=== PATIENT | male | born 1960 | race Caucasian/White ===

== ENCOUNTER 2018-02-24 14:09 | Emergency (ER) | payer OTHER ==
[~2018-02-24] VITALS: Ht 190.5 cm; Wt 97.5 kg
[2018-02-24 15:07] LABS: ABSOLUTE BASOPHILS 0.1 thou/uL (0.0-0.2); ABSOLUTE EOSINOPHILS 0.2 thou/uL (0.0-0.7); ABSOLUTE LYMPHOCYTES 1.9 thou/uL (0.8-5.3); ABSOLUTE NEUTROPHILS 9.5 thou/uL (1.6-8.1); BASOPHILS 0.6 %; EOSINOPHILS 1.9 %; LYMPHOCYTES 14.8 %; MCH 29.4 pg (26.0-34.0); MCV 86.4 fL (80.0-100.0); MONOCYTES 7.6 %; MPV 8.2 fl. (7.2-11.1); NUCLEATED RBCS 0 /100WBC; PLATELET COUNT* 286 thou/uL (150-400); POLYS 75.1 %; RBC 5.45 mil/uL (4.50-6.00); RDW-CV 13.2 % (10.5-14.5); WBC 12.7 thou/uL (4.0-11.0)
[2018-02-24 15:16] LABS: ANION GAP 7 mmol/L (7-16); BUN 12 mg/dL (7-18); CALCIUM 9.2 mg/dL (8.5-10.1); CHLORIDE 99 mmol/L (98-107); CO2 28 mmol/L (21-32); CREATININE 1.2 mg/dL (0.6-1.3); GLUCOSE 103 mg/dL (70-99); POTASSIUM 4.2 mmol/L (3.5-5.1); SODIUM 134 mmol/L (136-145)
[2018-02-24 15:26] LABS: ALBUMIN 3.7 g/dL (3.4-5.0); ALKALINE PHOSPHATASE 30 U/L (46-116); LIPASE 158 U/L (73-393); NT-PRO BRAIN NAT PEPTIDE 406 pg/mL (<300); SGOT 14 U/L (15-37); SGPT 23 U/L (30-65); TOTAL BILIRUBIN 0.6 mg/dL (<0.1-1.0); TOTAL PROTEIN 7.5 g/dL (6.4-8.2); TROPONIN-I LEVEL <0.06 ng/mL (<0.06)
[2018-02-24] MEDS ORDERED: ZPAK PO (16:07)
[2018-02-24] MEDS ORDERED: MEDROLDOSEPACK PO (16:07)
[2018-02-24] MEDS ORDERED: NORCO 5-325 TA1 EACH PO (16:07)
[2018-02-24] MEDS ORDERED: LISINOPRIL20 MG PO (16:07)
[2018-02-24 16:49] VITALS: BP 165/105
--- NOTE | 2018-02-25 17:22 | EKG ---
[place] [address] ELECTROCARDIOGRAM REPORT Name: KEVINDENNIS Pasha Room: [facility]#: [id number] Admission: 02/24/18 Attend Phys: Discharge: 02/24/18 Date of : 56 Report #: [id number] THIS REPORT FOR: //name// [facility] ED Test Date: 2018-02-24 Test Time: 14:33:47 Pat Name: DENNIS BROWN Department: Room: Gender: M [employer] Specialist: JESSICA : 1960 Requested By: Sena Black Order Number: [id number] MD: Kumar Vasquez Measurements Intervals [place] Rate: 77 P: -11 ID: 150 QRS: -53 QRSD: 88 T: 7 QT: 408 QTc: 462 Interpretive Statements Sinus rhythm Inferior infarct, old, possible No previous ECG available for comparison Electronically Signed On 02-25-2018 17:21:55 CDT by Kumar Vasquez [email or web address] <ELECTRONICALLY SIGNED> By: Kumar Vasquez MD, FACC 02/25/18 1721 1433 1433 Kumar Vasquez MD, FACC /EPI
== END 2018-02-24 16:49 | disposition home or self-care (01) ==
LOC: M.ERS 14:09
PROVIDERS: Nurse Practitioner Family
DX: J18.9 Pneumonia, unspecified organism (principal); M94.0 Chondrocostal junction syndrome [Tietze]; I10 Essential (primary) hypertension; J44.9 Chronic obstructive pulmonary disease, unspecified

== ENCOUNTER 2019-07-04 14:43 | Emergency (ER) | payer OTHER ==
[~2019-07-04] VITALS: Ht 190.5 cm; Wt 101.2 kg
[~2019-07-04 14:43] MED LIST: LISINOPRIL20 MG PO; MEDROLDOSEPACK PO; NORCO 5-325 TA1 EACH PO; ZPAK PO
[2019-07-04] MEDS ORDERED: CARVEDILOL12.5 MG PO (14:53)
[2019-07-04] MEDS ORDERED: FLOMAX0.4 MG PO (14:53)
[2019-07-04] MEDS ORDERED: NORVASC 2.5 MG2.5 M1 PO (14:53)
[2019-07-04] MEDS ORDERED: ASA81BEC PO (14:53)
[2019-07-04 15:20] LABS: INFLUENZA A ANTIGEN Negative (Negative); INFLUENZA B ANTIGEN Negative (Negative)
[2019-07-04 15:23] LABS: ABSOLUTE EOSINOPHILS 0.2 thou/uL (0.0-0.7); ABSOLUTE LYMPHOCYTES 1.5 thou/uL (0.8-5.3); ABSOLUTE MONOCYTES 0.9 thou/uL (0.0-1.2); ABSOLUTE NEUTROPHILS 4.5 thou/uL (1.6-8.1); BASOPHILS 0.5 %; EOSINOPHILS 2.2 %; HEMATOCRIT 32.1 % (42.0-52.0); LYMPHOCYTES 20.7 %; MCH 27.8 pg (26.0-34.0); MCHC 34.3 g/dL (28.0-37.0); MCV 81.1 fL (80.0-100.0); MONOCYTES 12.3 %; MPV 7.8 fl. (7.2-11.1); NUCLEATED RBCS 0 /100WBC; PLATELET COUNT* 385 thou/uL (150-400); POLYS 64.3 %; RBC 3.95 mil/uL (4.50-6.00); RDW-CV 14.3 % (10.5-14.5); WBC 7.1 thou/uL (4.0-11.0)
[2019-07-04 15:30] LABS: CALCIUM 8.3 mg/dL (8.5-10.1); CREATININE 1.5 mg/dL (0.6-1.3); POTASSIUM 3.3 mmol/L (3.5-5.1)
[2019-07-04 15:35] LABS: ALBUMIN 2.6 g/dL (3.4-5.0); TOTAL BILIRUBIN 0.3 mg/dL (<0.1-1.0); TOTAL PROTEIN 7.2 g/dL (6.4-8.2)
[2019-07-04 15:59] LABS: URINE BILIRUBIN NEGATIVE (Negative); URINE BLOOD 2+ (Negative); URINE CLARITY SL CLOUDY; URINE COLOR YELLOW; URINE GLUCOSE-RANDOM NEGATIVE (Negative); URINE KETONES NEGATIVE (Negative); URINE PROTEIN TRACE (Negative); URINE UROBILINOGEN 0.2 E.U./dl (0.2-1.0)
[2019-07-04 16:01] LABS: URINE LEUKOCYTES-REFLEX 3+ (Negative); URINE NITRITE-REFLEX POSITIVE (Negative)
[2019-07-04 16:11] LABS: SQUAMOUS 0-3 Few /LPF (0-3); URINE WBC-REFLEX >25 Many /HPF (0-5); WBC CLUMPS Many (None Seen)
[2019-07-04 16:12] LABS: BACTERIA-REFLEX >30 Many /HPF (None Seen); URINE RBC 3-10 Few /HPF (0-2)
[2019-07-04 16:13] LABS: CASTS None Seen /LPF (None Seen); CRYSTALS None Seen /LPF (None Seen); MUCUS 0-3 Light strn/LPF (None Seen)
[2019-07-04] MEDS ORDERED: NORCO 5-325 TA1 EAC1 PO (16:45)
[2019-07-04] MEDS ORDERED: DOXYCYCLINE 10100 M2 PO (16:45)
[2019-07-04] MEDS ORDERED: ZOFRAN ODT4 MG DISSOLVE (16:45)
[2019-07-04 17:22] VITALS: BP 170/91
== END 2019-07-04 17:24 | disposition home or self-care (01) ==
LOC: M.ERS 14:43
PROVIDERS: Emergency Medicine Emergency Medical Services
DX: N39.0 Urinary tract infection, site not specified (principal); M54.5 Low back pain; M54.6 Pain in thoracic spine; I10 Essential (primary) hypertension; R51 Headache; J45.909 Unspecified asthma, uncomplicated; Z88.0 Allergy status to penicillin; Z79.82 Long term (current) use of aspirin